=== PATIENT | female | born 1980 | race Caucasian/White ===

== ENCOUNTER 2021-07-25 03:15 | Emergency (ER) | payer BC ==
[2021-07-25 03:20] VITALS: TEMP 97.4
--- NOTE | 2021-07-25 04:15 | ED ---
Back Pain HPI - General Chief Complaint: Back Pain/Injury Stated Complaint: Back spasms Time Seen by Provider: 07/25/21 03:34 Source: patient Limitations: no limitations - History of Present Illness Initial Comments: This patient is a 41-year-old man who complains of having pain and stiffness to the right upper back. He indicates the area of the right rhomboid muscles. Patient states that was noted after he had slept on that side. Patient states that the area feels tight and somewhat limits by raising his arm. There is no weakness or numbness into the extremity. No neck pain. MD Complaint: back pain Onset/Timin -: days(s) Similar Symptoms Previously: Yes Place: home Severity: moderate Quality: aching Consistency: constant Improves With: none Worsens With: movement Associated Symptoms: denies other symptoms - Related Data Previous Rx's Medication Instructions Recorded Methocarbamol [Robaxin-750] 750 mg PO TID PRN #30 tablet 07/25/21 Allergies Allergy/AdvReac Type Severity Reaction Status Date / Time No Known Allergies Allergy Verified 07/25/21 03:20 Review of Systems ROS Statement: Those systems with pertinent positive or pertinent negative responses have been documented in the HPI. ROS Other: All systems not noted in ROS Statement are negative. Constitutional: Denies: fever, chills, weakness Respiratory: Denies: cough, dyspnea Cardiovascular: Denies: chest pain Gastrointestinal: Denies: abdominal pain Musculoskeletal: Reports: as per HPI, back pain, myalgia Skin: Denies: rash Neurological: Denies: weakness, numbness Past Medical History Past Medical History: No Reported History History of Any Multi-Drug Resistant Organisms: None Reported Past Surgical History: No Surgical Hx Reported Past Psychological History: No Psychological Hx Reported Smoking Status: Never smoker Past Alcohol Use History: Occasional Past Drug Use History: None Reported General Exam Limitations: no limitations General appearance: alert, in no apparent distress Respiratory exam: Present: normal lung sounds bilaterally. Absent: respiratory distress, wheezes, rales, rhonchi, stridor Cardiovascular Exam: Present: regular rate, normal rhythm, normal heart sounds. Absent: systolic murmur, diastolic murmur, rubs, gallop Back exam: Present: normal inspection, muscle spasm, paraspinal tenderness. Absent: CVA tenderness (R), CVA tenderness (L), vertebral tenderness Neurological exam: Absent: motor sensory deficit Skin exam: Present: warm, dry, intact, normal color. Absent: rash Course Vital Signs 07/25/21 03:16 Temperature 97.4 F L Pulse Rate 77 Respiratory 22 Rate Blood Pressure 150/94 O2 Sat by Pulse 99 Oximetry Disposition Clinical Impression: Muscle strain Disposition: HOME SELF-CARE Condition: Good Instructions (If sedation given, give patient instructions): Muscle Strain (DC) Prescriptions: Methocarbamol [Robaxin-750] 750 mg PO TID PRN #30 tablet PRN Reason: pain Is patient prescribed a controlled substance at d/c from ED?: No Referrals: None,Stated [Primary Care Provider] - 1-2 days
[2021-07-25 04:44] VITALS: BP 132/78; PULSE 70; RESP 18
== END 2021-07-25 04:45 | disposition home or self-care (01) ==
LOC: EC 03:15
DX: S39.012A Strain of muscle, fascia and tendon of lower back, initial encounter (principal); X58.XXXA Exposure to other specified factors, initial encounter
CPT/HCPCS: 99283